=== PATIENT | male | born 2000 | race African-American/Black ===

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

== ENCOUNTER 2019-05-03 18:51 | Emergency (ER) | payer BC, MEDICAID ==
[~2019-05-03] VITALS: Ht 185.4 cm; Wt 75.0 kg
[2019-05-03 19:48] VITALS: BP 124/75
[2019-05-03] MEDS: KETOROLAC 30 MG/ML VIAL (J1885) IV ONE (20:23)
[2019-05-03] MEDS ORDERED: IBUP80TA PO (20:51)
--- NOTE | 2019-05-05 09:31 | REP ---
CT of the cervical spine: Axial images are acquired helical scanning and a reformatted sagittal and coronal projections: Vertebral body heights, interspacing alignment are normal. The prevertebral soft tissues are normal. The facets are normally aligned. There is no compression deformity or listhesis. The skull base, C1-C2 are unremarkable. There are no posterior element fractures. Impression: There is no fracture or listhesis. Stat emergency interpretation is given after-hours by virtual radiology. Electronically Signed by James Pham MD 05/05/2019 09:22 A
--- NOTE | 2019-05-05 09:36 | REP ---
CT of the brain without IV contrast: There is no subdural or epidural hematoma. There is no other acute intracranial hemorrhage. There is no edema, mass effect or midline shift. The ventricles are normal size and midline. The visualized paranasal sinuses and mastoid air cells are clear. Impression: Essentially negative emergency CT study of the brain. Emergency interpretation is given upon completion of the study after-hours by virtual radiology. Electronically Signed by James Pham MD 05/05/2019 09:27 A
--- NOTE | 2019-05-06 07:21 | REP ---
Left shoulder three views: There are no comparisons. The acromioclavicular joint is mildly widened, however there is no elevation of the clavicle. This could be congenital variation or post-traumatic. Correlation with clinical point tenderness is recommended. There is no fracture or dislocation. No calcifications. The glenohumeral joint is unremarkable. Mineralization is normal. Impression: Mild acromioclavicular joint widening as described. Electronically Signed by James Pham MD 05/03/2019 08:01 P
== END 2019-05-03 21:34 | disposition home or self-care (01) ==
LOC: M ED 18:51
DX: S43.102A Unspecified dislocation of left acromioclavicular joint, initial encounter (principal); V00.311A Fall from snowboard, initial encounter; Y92.838 Other recreation area as the place of occurrence of the external cause; Y93.23 Activity, snow (alpine) (downhill) skiing, snowboarding, sledding, tobogganing and snow tubing; Y99.8 Other external cause status
CPT/HCPCS: 70450; 72125; 73030; 96374; 99284; J1885

== ENCOUNTER → 2020-08-08 | Outpatient (REF) | payer OTHER ==
[~2020-08-08] MED LIST changes: +IBUP80TA PO
== END ==
LOC: M LAB REF 18:22
PROVIDERS: ATTEND Physician Assistant
DX: N50.819 Testicular pain, unspecified (principal)

== ENCOUNTER 2020-12-05 09:08 | Emergency (ER) | payer OTHER ==
[~2020-12-05] VITALS: Ht 185.4 cm; Wt 73.0 kg
--- NOTE | 2020-12-05 09:56 | REP ---
INDICATION: FALL. COMPARISON: Left shoulder, 05/03/2019. TECHNIQUE: Three views of the left shoulder were obtained. FINDINGS: There has been progressive abnormal widening of the coracoclavicular and acromioclavicular distances, with the coracoclavicular distance measuring 1.6 cm and the acromioclavicular distance measuring 1.2 cm. There has been interval development of soft tissue calcification inferior to the distal clavicle, possibly a calcifying hematoma. There is no evidence of bony fracture. The periarticular soft tissues including the visualized left lung are unremarkable. IMPRESSION: 1. Interval development of a grade 3 acromioclavicular joint separation, as described. 2. No associated bony fracture is identified. <Electronically signed by Daryn Simms > 12/05/20 [id number]
[2020-12-05] MEDS ORDERED: ONDANSETRON 4 MG ORAL DISINTEGRATING TAB PO ONE (11:15)
[2020-12-05] MEDS ORDERED: NORCO, ANEXSIA 5/325MG TABLET (HYDROcodone/ACETAMINOPHEN) PO ONE (11:15)
--- NOTE | 2020-12-05 11:52 | REP ---
INDICATION: zanca view, AC joint view pls. COMPARISON: Left shoulder 05/03/2019 and same day. TECHNIQUE: AP view of both acromioclavicular joints, with and without weights. FINDINGS: Without weights: CC distance = 13 mm; AC distance = 10 mm With weights: CC distance equal 15 mm; AC distance = 13 mm IMPRESSION: Grade 3 acromioclavicular joint separation increases with weights. <Electronically signed by Daryn Simms > 12/05/20 [id number]
[2020-12-05] MEDS ORDERED: HYDR-3713 PO (12:23)
[2020-12-05] MEDS ORDERED: ONDA4TAB6 PO (12:23)
[2020-12-05 12:32] VITALS: BP 142/77
== END 2020-12-05 12:33 | disposition home or self-care (01) ==
LOC: M ED 09:08
DX: S43.102A Unspecified dislocation of left acromioclavicular joint, initial encounter (principal); W10.9XXA Fall (on) (from) unspecified stairs and steps, initial encounter; Y92.009 Unspecified place in unspecified non-institutional (private) residence as the place of occurrence of the external cause; Y93.89 Activity, other specified; Y99.8 Other external cause status
CPT/HCPCS: 73030; 73050; 99284; Q0162

== ENCOUNTER 2022-01-08 09:41 | Emergency (ER) | payer OTHER ==
[~2022-01-08] VITALS: Ht 185.4 cm; Wt 70.4 kg
[~2022-01-08 09:41] MED LIST changes: +HYDR-3713 PO; +ONDA4TAB6 PO
[2022-01-08 09:42] VITALS: BP 125/78
[2022-01-08] MEDS ORDERED: EXCEDRIN MIGRAINE TABLET PO STA (10:01)
== END 2022-01-08 11:07 | disposition home or self-care (01) ==
LOC: M ED 09:41
DX: G44.209 Tension-type headache, unspecified, not intractable (principal); S43.102A Unspecified dislocation of left acromioclavicular joint, initial encounter; F17.290 Nicotine dependence, other tobacco product, uncomplicated

== ENCOUNTER 2022-03-01 14:41 | Emergency (ER) | payer OTHER ==
[~2022-03-01] VITALS: Ht 188 cm; Wt 75.0 kg
[2022-03-01 14:42] VITALS: BP 126/69
== END 2022-03-02 06:29 | disposition left against medical advice (07) ==
LOC: M ED 14:41
DX: Z53.21 Procedure and treatment not carried out due to patient leaving prior to being seen by health care provider (principal)

== ENCOUNTER 2024-10-17 05:46 | Emergency (ER) | payer OTHER ==
[~2024-10-17] VITALS: Ht 185.4 cm; Wt 72.0 kg
[~2024-10-17 05:46] MED LIST changes: +ONDA-282 PO; -ONDA4TAB6 PO
[2024-10-17] MEDS ORDERED: HOME MED LIST COMPLETE! XX SCH (07:50)
[2024-10-17 08:21] VITALS: BP 147/67; TEMP 96.1; O2SAT 99
== END 2024-10-17 08:26 | disposition home or self-care (01) ==
LOC: M ED 05:46
DX: S49.92XA Unspecified injury of left shoulder and upper arm, initial encounter (principal); W22.8XXA Striking against or struck by other objects, initial encounter; Y92.009 Unspecified place in unspecified non-institutional (private) residence as the place of occurrence of the external cause; Y93.89 Activity, other specified; Y99.9 Unspecified external cause status; F17.290 Nicotine dependence, other tobacco product, uncomplicated; S43.102D Unspecified dislocation of left acromioclavicular joint, subsequent encounter

== ENCOUNTER 2025-01-11 06:56 | Emergency (ER) | payer OTHER, SELFPAY ==
[~2025-01-11] VITALS: Ht 185.4 cm; Wt 74.9 kg
[~2025-01-11 06:56] MED LIST changes: -IBUP-1022 PO; +IBUP600T42 PO
[2025-01-11 07:00] VITALS: TEMP 97.4
[2025-01-11] MEDS ORDERED: LIDO1ADH93 TOP (09:04)
[2025-01-11] MEDS ORDERED: IBUP80TA PO (09:04)
[2025-01-11 09:08] VITALS: BP 120/65; O2SAT 98
[2025-01-11] MEDS: LIDOCAINE 5% PATCH TD ONE (10:16)
== END 2025-01-11 10:23 | disposition home or self-care (01) ==
LOC: M ED 06:56
DX: S46.012A Strain of muscle(s) and tendon(s) of the rotator cuff of left shoulder, initial encounter (principal); X58.XXXA Exposure to other specified factors, initial encounter; Y92.009 Unspecified place in unspecified non-institutional (private) residence as the place of occurrence of the external cause; Y93.9 Activity, unspecified; Y99.9 Unspecified external cause status; F17.290 Nicotine dependence, other tobacco product, uncomplicated

== ENCOUNTER 2025-01-27 10:24 | Emergency (ER) | payer OTHER, SELFPAY ==
[~2025-01-27] VITALS: Ht 185.4 cm; Wt 72.9 kg
[~2025-01-27 10:24] MED LIST changes: +LIDO1ADH93 TOP
[2025-01-27 10:27] VITALS: BP 136/73; TEMP 99.2; O2SAT 98
[2025-01-27 11:19] LABS: PLATELET COUNT, AUTOMATED 239 10^3/uL (150-450)
[2025-01-27 12:07] LABS: BARBITURATES URINE NEGATIVE (NEGATIVE); COCAINE METABOLITE URINE NEGATIVE (NEGATIVE)
[2025-01-27 12:09] LABS: AMPHETAMINES LEVEL URINE NEGATIVE (NEGATIVE); BENZODIAZEPINES URINE NEGATIVE (NEGATIVE); ETHYL ALCOHOL (ETHANOL) < 0.003 % (0.000-0.010); METHADONE URINE NEGATIVE (NEGATIVE); OPIATES URINE NEGATIVE (NEGATIVE); PHENCYCLIDINE URINE NEGATIVE (NEGATIVE)
[2025-01-27 12:10] LABS: CANNABINOIDS URINE POSITIVE (NEGATIVE)
[2025-01-27 12:11] LABS: ALT/SGPT 26 U/L (7.0-40); AST/SGOT 38 U/L (<34); CALCIUM LEVEL 9.8 MG/DL (8.5-10.1); CARBON DIOXIDE LEVEL 24 MMOL/L (20-31); CHLORIDE LEVEL 108 MMOL/L (98-107); CREATININE FOR GFR 1.03 MG/DL (0.70-1.30); GLOMERULAR FILTRATION RATE > 90.0 (>60); POTASSIUM SERUM 4.1 MMOL/L (3.5-5.1); SALICYLATE LEVEL < 3.0 MG/DL (<30); SODIUM LEVEL 143 MMOL/L (136-145)
== END 2025-01-27 12:03 | disposition home or self-care (01) ==
LOC: M ED 10:24
DX: F43.0 Acute stress reaction (principal); Z79.1 Long term (current) use of non-steroidal anti-inflammatories (NSAID); Z79.899 Other long term (current) drug therapy